=== PATIENT | female | born 1945 | race Hispanic/Latino ===

== ENCOUNTER 2022-09-20 12:16 | Emergency (ER) | payer MEDICARE ==
[~2022-09-20] VITALS: Ht 157.5 cm; Wt 56.7 kg
[2022-09-20] MEDS ORDERED: KETO10TA2 PO ×2 (14:46→14:49)
[2022-09-20] MEDS ORDERED: LIDOP TP (14:46)
[2022-09-20 15:25] VITALS: BP 138/78
== END 2022-09-20 15:27 | disposition home or self-care (01) ==
LOC: EDH 12:16
DX: M16.11 Unilateral primary osteoarthritis, right hip (principal); I10 Essential (primary) hypertension; E78.00 Pure hypercholesterolemia, unspecified; Z90.710 Acquired absence of both cervix and uterus
CPT/HCPCS: 73502